=== PATIENT | male | born 1995 | race Caucasian/White ===

== ENCOUNTER 2016-10-13 21:12 | Emergency (ER) | payer OTHER ==
[~2016-10-13] VITALS: Ht 188 cm; Wt 113.4 kg
[~2016-10-13 21:12] MED LIST: NAPR500T2 PO; PERCOCET PO; TRAM50TA2 PO
[2016-10-13 21:40] VITALS: BP 129/79
--- NOTE | 2016-10-14 03:12 | REP ---
Clinical: Trauma. Technique: AP, lateral, bilateral oblique views right hand. Findings: The osseous structures, soft tissues, and joint spaces appear essentially intact. There is no definite evidence for acute fracture or dislocation. However, oblique image 2 of 4 demonstrates a a small bony density adjacent to the lunate and partially overlying the ulnar styloid; small acute versus chronic fracture fragment cannot definitively be excluded and should be correlated with physical examination. There also appears to be subtle irregularity primarily involving the base of the fifth metacarpal bone and triquetrum further suggesting old injuries. No subcutaneous emphysema or radiodense foreign body. Impression: No definite acute fracture. Questionable findings to suggest a old trauma including subtle small bony fragment on oblique image as described above requires correlation. This appears relatively well corticated suggesting the possibility of old injury. Signed by Jesus Lazo MD 10/14/2016 03:03 A
--- NOTE | 2016-10-14 03:12 | REP ---
Clinical: Trauma. Technique: AP, lateral, bilateral oblique views right wrist . Findings: The carpal bones, surrounding osseous structures, soft tissues, and joint spaces appear normal. There is no definite evidence for acute fracture or dislocation. However, oblique image 2 of 4 demonstrates a a small bony density adjacent to the lunate and partially overlying the ulnar styloid. Small acute versus chronic fracture fragment cannot definitively be excluded and should be correlated with physical examination. No subcutaneous emphysema or radiodense foreign body. Impression: No definite acute fracture. Questionable subtle small bony fragment on oblique image as described above requires correlation. This is perceived on hand series as well and appears relatively well corticated suggesting the possibility of old injury. Signed by Jesus Lazo MD 10/14/2016 03:04 A
--- NOTE | 2016-10-15 11:33 | ED PDOC ---
Post-Departure Follow-Up xray revealed acute vs. chronic fx wrist - spoke with charge nurse will call patient to return for evaluation Sheela Paula MD Oct 15, 2016 11:33
== END 2016-10-14 00:07 | disposition left against medical advice (07) ==
LOC: M ED 23:11
DX: S69.91XA Unspecified injury of right wrist, hand and finger(s), initial encounter (principal); X58.XXXA Exposure to other specified factors, initial encounter; Y92.89 Other specified places as the place of occurrence of the external cause; Y93.89 Activity, other specified; Y99.8 Other external cause status; R93.6 Abnormal findings on diagnostic imaging of limbs

== ENCOUNTER 2016-10-15 13:14 | Emergency (ER) | payer OTHER ==
[~2016-10-15] VITALS: Ht 188 cm; Wt 113.4 kg
[2016-10-15 14:15] LABS: MEAN CORPUSCULAR HEMOGLOBIN 29.7 pg (27.0-33.0); MEAN CORPUSCULAR HGB CONC 33.1 g/dl (32.0-36.5); MEAN CORPUSCULAR VOLUME 89.6 fl (80.0-96.0); RED CELL DISTRIBUTION WIDTH 12.8 % (11.5-14.5); WHITE BLOOD COUNT 7.8 K/mm3 (4.0-10.0)
[2016-10-15 14:42] LABS: METHADONE URINE NEGATIVE (NEGATIVE)
[2016-10-15 14:52] LABS: ALBUMIN 4.1 GM/DL (3.2-5.2); ALBUMIN/GLOBULIN RATIO 1.14 (1.00-1.93); ALKALINE PHOSPHATASE 57 U/L (45-117); ALT/SGPT 34 U/L (12-78); ANION GAP 9 MEQ/L (8-16); AST/SGOT 18 U/L (15-37); BILIRUBIN,DIRECT < 0.1 MG/DL (0.0-0.2); BILIRUBIN,TOTAL 0.3 MG/DL (0.2-1.0); BLOOD UREA NITROGEN 11 MG/DL (7-18); CALCIUM LEVEL 8.8 MG/DL (8.5-10.1); CARBON DIOXIDE LEVEL 29 MEQ/L (21-32); CHLORIDE LEVEL 101 MEQ/L (98-107); CREATININE FOR GFR 1.01 MG/DL (0.70-1.30); GLOMERULAR FILTRATION RATE > 60.0 (>60); GLUCOSE, FASTING 105 MG/DL (70-105); POTASSIUM SERUM 4.1 MEQ/L (3.5-5.1); SODIUM LEVEL 139 MEQ/L (136-145); TOTAL PROTEIN 7.7 GM/DL (6.4-8.2)
[2016-10-15 18:36] VITALS: BP 148/81
== END 2016-10-15 18:38 | disposition home or self-care (01) ==
LOC: M ED 13:55
DX: F43.0 Acute stress reaction (principal); F17.200 Nicotine dependence, unspecified, uncomplicated; Z91.5 Personal history of self-harm
CPT/HCPCS: 36415; 80048; 80076; 80306; 84443; 85027; 99284; G0480